=== PATIENT | male | born 1960 | race Caucasian/White ===

== ENCOUNTER 2022-11-09 11:51 | Day surgery (SDC) | payer BC ==
[~2022-11-09] VITALS: Ht 185.4 cm; Wt 100.9 kg
[2022-11-09] VITALS (8 sets, daily range): BP systolic 117–142; BP diastolic 73–102
[~2022-11-09 11:51] MED LIST: LIDOcaine 1% (10mg/ml) 2ml vial ONE; fentaNYL/PF 50MCG/1 ML 2ML syringe ONE; heparin 1,000unit/ml 10ml vial 10 ML ONE; iohexol 350MG/ML 100ml bottle IV ONE; midazolam 1 mg/ML 2ml injection ONE; nitroGLYCERIN-Tridil 50MG/D5W 250 ML IV ONE; verapamil 2.5 mg/ml inj IV ONE
[2022-11-09] MEDS ORDERED: SPIR25TA5 PO (12:17)
[2022-11-09] MEDS ORDERED: METO-395 PO (12:17)
[2022-11-09] MEDS ORDERED: SACU1TAB PO (12:17)
[2022-11-09] MEDS ORDERED: EMPA10TA PO (12:17)
[2022-11-09] MEDS ORDERED: normal saline 1,000 ML IV SCH (12:35)
[2022-11-09] MEDS ORDERED: diphenhydrAMINE 25mg capsule PO PRN (12:35)
[2022-11-09] MEDS ORDERED: LORazepam 0.5 MG tablet PO PRN (12:35)
[2022-11-09] MEDS ORDERED: nitroGLYCERIN 0.4mg SUBLingual tab SL PRN (14:05)
[2022-11-09] MEDS ORDERED: proCHLORperazine 10 MG/2 ml inj IV PRN (14:05)
[2022-11-09] MEDS ORDERED: OXAZEpam 15mg capsule PO PRN (14:05)
[2022-11-09] MEDS ORDERED: ondansetron/PF 4mg/2ml inj IV PRN (14:05)
== END 2022-11-09 16:00 | disposition home or self-care (01) ==
LOC: SSTAY O 11:51
PROVIDERS: ATTEND Student in an Organized Health Care Education/Training Program
DX: I11.0 Hypertensive heart disease with heart failure (principal); I50.22 Chronic systolic (congestive) heart failure; I42.0 Dilated cardiomyopathy; J45.909 Unspecified asthma, uncomplicated; I34.0 Nonrheumatic mitral (valve) insufficiency; E78.5 Hyperlipidemia, unspecified; Z95.810 Presence of automatic (implantable) cardiac defibrillator; Z79.899 Other long term (current) drug therapy; Z86.16 Personal history of COVID-19
CPT/HCPCS: 93005; 93454; 99152; J1644; J2250; J3010; J3490; J7030; Q0163; Q9967; A6258; A6449; C1894